=== PATIENT | female | born 1990 | race Caucasian/White ===

== ENCOUNTER 2021-03-30 06:04 | Inpatient (IN) | payer OTHER, SELFPAY ==
[2021-03-30] VITALS (151 sets, daily range): BP systolic 81–201; BP diastolic 43–177; PULSE 25–150; RESP 16–20; TEMP 36.4–37.7; O2SAT 81–100; BMI 35.1
--- NOTE | 2021-03-30 06:04 | LDADM ---
This patient, Elizabeth Leiva, was admitted to Labor/Delivery/Recovery 103 on 03/30/21 at 06:04. Plans for labor, pain management and were discussed with patient. Patient/family oriented to hospital policies and general routines including ID bracelet, bed and alarms, visiting hours, pain management, procedures, bathroom and other care routines, personal items, smoking policy, room service/diet and guest tray routines, infant security routines, and visiting hours. Patient/Family are encouraged to report perceived risks to care and to ask questions if they do not understand what they are told or what they should do. See OBIX for further documentation.
--- OUTSIDE RECORDS SUMMARY | 2021-03-30 06:11 | XMS_ITS | Encounter Summary ---
:1990 Author Reason for Visit None recorded. Assessment and Plan 1. Cholestasis of ? non-stress test Discussion Note: None recorded.Patient educational handouts: No information available. Plan of Care Reminders Provider Appointments Ob Routine Luís Wrae 03/31/2021 MD Rosamaria 10:15AM ? Ob Routine Elizabeth Ware 04/05/2021 MD Rosamaria 1:30PM ? Ob Routine Elizabeth Ware 04/14/2021 MD Rosamaria 10:30AM Lab None ? ? recorded. Referral None ? ? recorded. Procedures None ? ? recorded. Surgeries None ? ? recorded. Imaging Non-stress [place] Test 03/24/2021 Medications Name Start Date ? ? ? ursodiol 300 mg capsule ? TAKE 1 CAPSULE BY MOUTH TWICE DAILY Medications Administered None recorded. Vitals None recorded. Results Lab Results None recorded. Allergies Code Code System Name Reaction Severity Onset NKDA ? ? ? Problems Name
--- OUTSIDE RECORDS SUMMARY | 2021-03-30 06:11 | XMS_ITS | Encounter Summary ---
:1990 Author Reason for Visit None recorded. Assessment and Plan 1. Cholestasis of ? US, obstetric, follow-up ? US, obstetric, biophysical profile Discussion Note: None recorded.Patient educational handouts: No information available. Plan of Care Reminders Provider Appointments Ob Routine Luís linoo Chaz 03/31/2021 MD Rosamaria 10:15AM ? Ob Routine Elizabeth Ware 04/05/2021 MD Rosamaria 1:30PM ? Ob Routine Elizabeth Ware 04/14/2021 MD Rosamaria 10:30AM Lab None recorded. ? ? Referral None recorded. ? ? Procedures None recorded. ? ? Surgeries None recorded. ? ? Imaging US, Obstetric, [facility] Follow-up 02/17/2021 ? US, Obstetric, [facility] Biophysical Profile 02/17/2021 Medications Name Start Date ? ? ? ursodiol 300 mg capsule ? TAKE 1 CAPSULE BY MOUTH TWICE DAILY Medications
--- OUTSIDE RECORDS SUMMARY | 2021-03-30 06:11 | XMS_ITS ---
:1990 Author Care Team Providers Name Role Phone Rosamaria Chaz Primary Care Provider Unavailable Allergies Code Code System Name Reaction Severity Status Onset NKDA ? Medications Name Status Start Date Stop Date ? ? amoxicillin 500 mg capsule Completed ? 03/24 TAKE 2 CAPSULES BY MOUTH ONCE DAILY FOR 10 DAYS Active ? Not available ursodiol 300 mg capsule Active ? Not avai lable TAKE 1 CAPSULE BY MOUTH TWICE DAILY Problems Name Status Onset Date Source ? Active 10/13/2020 ? Procedures Date Name Performed by ? 12/08/2020 US, Obstetric, 2Nd or 3Rd Trimester Carmen stewart [address] [place] [address] (Work [address]) 01/06/2021 US, Obstetric, Follow-up [place] [address] [place] [address] (Work [address]) 02/07/2021 US, Obstetric, Biophysical Profile Cris sinclair [address] [place] [address] (Work [address]) 02/17/2021 US, Obstetric, Follow-up [place] [address] [place] [address]
--- OUTSIDE RECORDS SUMMARY | 2021-03-30 06:11 | XMS_ITS | Encounter Summary ---
:1990 Author Reason for Visit None recorded. Assessment and Plan 1. Cholestasis of ? US, obstetric, biophysical profile Discussion Note: None recorded.Patient educational handouts: No information available. Plan of Care Reminders Provider Appointments Ob Routine Luís Ware 03/31/2021 MD Rosamaria 10:15AM ? Ob Routine Elizabeth Ware 04/05/2021 MD Rosamaria 1:30PM ? Ob Routine Elizabeth Ware 04/14/2021 MD Rosamaria 10:30AM Lab None recorded. ? ? Referral None recorded. ? ? Procedures None recorded. ? ? Surgeries None recorded. ? ? Imaging US, Obstetric, [facility] Biophysical Profile 02/07/2021 Medications Name Start Date ? ? ? ursodiol 300 mg capsule ? TAKE 1 CAPSULE BY MOUTH TWICE DAILY Medications Administered None recorded. Vitals None recorded. Results Lab Results None recorded. Allergies Code Code System Name Reaction Severity Onset
--- OUTSIDE RECORDS SUMMARY | 2021-03-30 06:11 | XMS_ITS | Encounter Summary ---
[...] ? recorded. Imaging Non-stress [place] Test 03/17/2021 Medications Name Start Date ? ? ? ursodiol 300 mg capsule ? TAKE 1 CAPSULE BY MOUTH TWICE DAILY Medications Administered None recorded. Vitals None recorded. Results Lab Results None recorded. Allergies Code Code System Name Reaction Severity Onset NKDA ? ? ? Problems Name
--- OUTSIDE RECORDS SUMMARY | 2021-03-30 06:11 | XMS_ITS | Encounter Summary ---
:1990 Author Reason for Visit OB visit Assessment and Plan Assessment Note Patient is ___weeks . Discu ssed plan. 1. Cholestasis of Discussion Note: None recorded.Patient educational handouts: No information available. Plan of Care Reminders Provider Appointments Ob Routine Luís Ware 03/31/2021 MD Rosamaria 10:15AM ? Ob Routine Elizabeth Ware 04/05/2021 MD Rosamaria 1:30PM ? Ob Routine Elizabeth Ware 04/14/2021 MD Rosamaria 10:30AM Lab None ? ? recorded. Referral None ? ? recorded. Procedures None ? ? recorded. Surgeries None ? ? recorded. Imaging None ? ? recorded. Medications Name Start Date ? ? ? ursodiol 300 mg capsule ? TAKE 1 CAPSULE BY MOUTH TWICE DAILY Medications Administered None recorded. Vitals Height Weight BMI Blood Pressure 5 ft 5 in 195 lbs 32.4 kg/m2 126/55 mm[Hg] Results Lab Results None recorded. Allergies Code Code System Name Reaction Severity Onset
--- OUTSIDE RECORDS SUMMARY | 2021-03-30 06:11 | XMS_ITS | Encounter Summary ---
[...] None recorded. ? ? Imaging US, Obstetric, [facility] Biophysical Profile 02/24/2021 Medications Name Start Date ? ? ? ursodiol 300 mg capsule ? TAKE 1 CAPSULE BY MOUTH TWICE DAILY Medications Administered None recorded. Vitals None recorded. Results Lab Results None recorded. Allergies Code Code System Name Reaction Severity Onset
--- OUTSIDE RECORDS SUMMARY | 2021-03-30 06:11 | XMS_ITS | Encounter Summary ---
:1990 Author Reason for Visit OB visit Assessment and Plan Assessment Note Patient is ___weeks . Discu ssed plan. 1. Routine care Discussion Note: None recorded.Patient educational handouts: No [...] BMI Blood Pressure 5 ft 5 in 199 lbs 33.1 kg/m2 136/79 mm[Hg] Results Lab Results None recorded. Allergies Code Code System Name Reaction Severity Onset
--- OUTSIDE RECORDS SUMMARY | 2021-03-30 06:11 | XMS_ITS | Encounter Summary ---
[...] BMI Blood Pressure 5 ft 5 in 192 lbs 32 kg/m2 125/81 mm[Hg] Results Lab Results None recorded. Allergies Code Code System Name Reaction Severity Onset
--- OUTSIDE RECORDS SUMMARY | 2021-03-30 06:11 | XMS_ITS | Encounter Summary ---
:1990 Author Reason for Visit OB visit Assessment and Plan Assessment Note Patient is ___weeks . Discu ssed plan. 1. Cholestasis of ? bile acids, total, serum Discussion Note: None recorded.Patient educational handouts: No information available. Plan of Care Reminders Provider Appointments Ob Routine Luís Ware 03/31/2021 MD Rosamaria 10:15AM ? Ob Routine Elizabeth Ware 04/05/2021 MD Rosamaria 1:30PM ? Ob Routine Elizabeth Ware 04/14/2021 MD Rosamaria 10:30AM Lab Bile Acids, [facility] [place] Total, Serum 03/10/2021 Hospital (Lab) Referral None ? ? recorded. Procedures None ? ? recorded. Surgeries None ? ? recorded. Imaging None ? ? recorded. Medications Name Start Date ? ? ? ursodiol 300 mg capsule ? TAKE 1 CAPSULE BY MOUTH TWICE DAILY Medications Administered None recorded. Vitals Height Weight BMI Blood Pressure 5 ft 5 in 196 lbs 32.6 kg/m2 128/83 mm[Hg] Results Lab Results
--- OUTSIDE RECORDS SUMMARY | 2021-03-30 06:11 | XMS_ITS | Encounter Summary ---
[...] BMI Blood Pressure 5 ft 5 in 197 lbs 32.8 kg/m2 128/80 mm[Hg] Results Lab Results None recorded. Allergies Code Code System Name Reaction Severity Onset
--- OUTSIDE RECORDS SUMMARY | 2021-03-30 06:12 | XMS_ITS | Encounter Summary ---
:1990 Author Reason for Visit OB visit OB [id number] EDC 04/25/2021 LMP 07/19/2020 Assessment and Plan Assessment Note Patient is __24_weeks . Dis cussed plan. 1. Routine care Discussion Note: None [...] ft 5 in 192 lbs 32 kg/m2 122/73 mm[Hg] Results Lab Results None recorded. Allergies Code C
--- OUTSIDE RECORDS SUMMARY | 2021-03-30 06:12 | XMS_ITS | Encounter Summary ---
[...] BMI Blood Pressure 5 ft 5 in 193 lbs 32.1 kg/m2 136/81 mm[Hg] Results Lab Results None recorded. Allergies Code Code System Name Reaction Severity Onset
--- OUTSIDE RECORDS SUMMARY | 2021-03-30 06:12 | XMS_ITS | Encounter Summary ---
:1990 Author Reason for Visit None recorded. Assessment and Plan 1. condition affecting obs tetrical care of mother ? US, obstetric, follow-up Discussion Note: None recorded.Patient educational handouts: No information available. Plan of Care Reminders Provider Appointments Ob Routine Luís linoo Chaz 03/31/2021 MD Rosamaria 10:15AM ? Ob Routine Elizabeth Ware 04/05/2021 MD Rosamaria 1:30PM ? Ob Routine Elizabeth Ware 04/14/2021 MD Rosamaria 10:30AM Lab None ? ? recorded. Referral None ? ? recorded. Procedures None ? ? recorded. Surgeries None ? ? recorded. Imaging , [place] Obstetric, Follow-up 01/06/2021 Medications Name Start Date ? ? ? ursodiol 300 mg capsule ? TAKE 1 CAPSULE BY MOUTH TWICE DAILY Medications Administered None recorded. Vitals None recorded. Results Lab Results None recorded. Allergies Code Code System Name Reaction Severity Onset NKDA ? ? ? Problems
[2021-03-30 06:48] LABS: Basophils Absolute Auto 0.1 K/mm3 (0.0-0.1); Basophils Percent Auto 0.4 % (0.2-1.2); Eosinophils Absolute Auto 0.6 K/mm3 (0-0.3); Eosinophils Percent Auto 3.8 % (0-4.4); Hematocrit 33.2 % (37.0-47.0); Immature Granulocyte Percent A 1.3 % (0-0.5); Lymphocytes Absolute Auto 2.22 K/mm3 (0.9-3.2); Lymphocytes Percent Auto 14.9 % (18.3-44.2); Mean Corpuscular HGB Conc 33.1 g/dl (32-36); Mean Corpuscular Volume 96.5 fl (80-100); Mean Platelet Volume 9.7 fl (7.4-10.4); Monocytes Absolute Auto 1.2 K/mm3 (0.1-0.6); Monocytes Percent Auto 8.1 % (2.6-8.5); Neutrophils Absolute Auto 10.7 K/mm3 (1.3-6.7); Neutrophils Percent Auto 71.5 % (45.5-73.1); Platelet Count Result 371 k/mm3 (150-375); Red Blood Count 3.44 M/mm3 (4.2-5.4); Red Cell Distribution Width 13.5 % (11.5-14.5); White Blood Count 14.9 K/mm3 (4.5-10.0)
[2021-03-30] MEDS: LACTATED RINGERS 1,000 ML 125 ML IV CONT ×2 (06:55→08:39)
[2021-03-30] MEDS: OXYTOCIN 30 UNITS/NS 500 ML 30 UNITS/500 ML BAG IV CONT (06:55)
--- NOTE | 2021-03-30 07:46 | P.HPUP_ITS ---
History and Physical Update Update Date/Time: 03/30/21 07:46 30 y/o female at 36 weeks - induction of l abor for cholestasis of AROM - clear, pitocin, expectant History and Physical has been reviewed, including an updated exam of the patient. There are NO changes in the patient's condition. Risks, benefits, and alternatives have been discussed and questions answered. Patient agrees to proceed with procedure.
[2021-03-30 09:52] LABS: Rapid Plasma Reagin Non-Reactive (NonReactive)
--- NOTE | 2021-03-30 10:09 | P.PNOB_ITS ---
OB - PN: Subj Subjective Date/time seen: 03/30/21 10:09 AROM - repeated, clear, /-2 reassuring FHT's OB - PN: Obj Data Labs CBC & Chem 7: 03/30/21 06:38 Labs: Laboratory Results - last 24 hr 03/30/21 03/30/21 03/30/21 06:38 06:38 06:38 WBC 14.9 H RBC 3.44 L Hgb 11.0 L Hct 33.2 L MCV 96.5 MCH 32.0 MCHC 33.1 RDW 13.5 Plt Count 371 MPV 9.7 Immature Gran % (Auto) 1.3 H Neut % (Auto) 71.5 Lymph % (Auto) 14.9 L [place] % (Auto) 8.1 Eos % (Auto) 3.8 Baso % (Auto) 0.4 Lymph # (Auto) 2.22 [place] # (Auto) 1.2 H Eos # (Auto) 0.6 H Baso # (Auto) 0.1 Abs Immat Gran (auto) 0.20 H Absolute Neuts (auto) 10.7 H Absolute Nucleated RBC 0.0 Nucleated RBC % 0.0 RPR Non-reactive Blood Type A Positive Antibody Screen Negative OB - PN A/P Time Spent With Patient Time: Total time spent is greater than 50% in coordination of care (as documented) at patient's floor/unit and/or counseling patient:
[2021-03-30] MEDS: ONDANSETRON INJ 4 MG/2 ML VIAL IV PUSH (14:12)
--- NOTE | 2021-03-30 15:57 | P.PCNOB_ITS ---
OB - Delivery Note Procedure Delivery date: 03/30/21 Procedure: Intrapartal events: None Induction method: AROM and per pitocin protocol Delivery monitor: external FHT and internal uterine Route of delivery: Laceration Description: None Specimen: Yes Quantitative Blood Loss (ml): 300 Anesthesia type: Epidural Disposition: floor [place] Baby Date of : 03/30/21 Time of : 15:49 Weeks of gestation at delivery: 36 Infant gender: Female Weight (pounds): 6 Weight (ounces): 2 Placenta delivery description: Spontaneous score one minute: 9 score five minutes: 9
[2021-03-30] MEDS: OXYTOCIN 30 UNITS/NS 500 ML 30 UNITS/500 ML BAG 125 UNITS IV CONT (16:28)
[2021-03-30] MEDS: LORATADINE 10 MG TABLET PO (16:53)
[2021-03-30] MEDS: IBUPROFEN 600 MG TABLET PO (18:02)
[2021-03-30] MEDS: BENZOCAINE 20% AER SPR (*SP) 56 GM CAN 1 SPRAY TOPICAL (18:24)
[2021-03-30] MEDS: WITCH HAZEL 40 PADS 1 PAD TOPICAL (18:24)
--- NOTE | 2021-03-30 18:40 | OBPPTRN ---
Patient transferred to post room #290 via wheelchair. Support person present. Oriented to unit, room, information board, rooming in, admission packet and security measures. Patient verbalizes understanding.
[2021-03-31 04:37] LABS: Hemoglobin 9.9 g/dL (12.0-15.0)
--- NOTE | 2021-03-31 07:28 | PM.OBPNVD ---
OB - PN: Subj Subjective Date/time seen: 03/31/21 07:28 Patient comments: no complaints baby status: doing well OB - PN: Obj Data Labs CBC & Chem 7: 03/31/21 04:14 Labs: Laboratory Results - last 24 hr 03/30/21 03/30/21 03/31/21 06:38 06:38 04:14 Hgb 9.9 L Hct 30.0 L RPR Non-reactive Blood Type A Positive Antibody Screen Negative OB - PN A/P Plan day: 1 Plan: routine care Time Spent With Patient Time: Total time spent is greater than 50% in coordination of care (as documented) at patient's floor/unit and/or counseling patient: Review of Systems Review of Systems: All systems reviewed & are unremarkable except as noted in HPI and below Exam Const: General: cooperative, healthy appearing, comfortable and no acute distress
[2021-03-31 08:20] VITALS: BP 114/61; PULSE 93; RESP 18; TEMP 36.8; O2SAT 99
[2021-03-31] MEDS: DOCUSATE SODIUM 100 MG CAPSULE PO ×2 (08:42→15:57)
[2021-03-31] MEDS: POLYSACCHARIDE IRON COMPLEX 150 MG CAPSULE PO ×2 (08:42→15:57)
[2021-03-31] MEDS: IBUPROFEN 600 MG TABLET PO ×2 (08:42→15:57)
--- NOTE | 2021-03-31 09:16 | WPDANLDPN2 ---
Anes-Prog Note L&D Date/Time: 03/31/21 09:16 Comfortable throughout: labor and delivery Neuraxial method: epidural Epidural/Spinal procedure site: clean & non-tender Neuro status: Neuro function grossly intact. Cardiovascular status: normal Respiratory status: normal Airway patency: baseline Mental status: baseline Post-Op hydration status: normal Vital Signs: Last Vital Signs Temp 36.8 C 03/31/21 08:20 Pulse 93 03/31/21 08:20 Resp 18 03/31/21 08:20 BP 114/61 03/31/21 08:20 Pulse Ox 99 03/31/21 08:20 Pain score (VAS): 0 I/O: Intake & Output 03/30/21 03/31/21 03/31/21 23:59 07:59 15:59 Intake Total 500 Output Total 110 Balance 390 Post-procedural complaints: none Patient feedback: Patient satisfied with anesthetic care.
[2021-03-31 12:02] VITALS: BP 126/83; PULSE 82; RESP 16; TEMP 36.5; O2SAT 99
[2021-03-31] MEDS: TETANUS,DIPHTHERIA,AC PERTUSSIS ADULT (0.5 ML) BOOSTRIX IM (19:22)
[2021-03-31 20:00] VITALS: BP 110/75; PULSE 84; RESP 16; TEMP 36.3
--- NOTE | 2021-03-31 20:00 | PC.NURSE ---
Patient viewed the discharge video Mother & Baby Care, The First Two Weeks online. Patient was given the opportunity and encouraged to ask questions. Patient verbalized understanding of information shared and has been given the mother/baby guide for home reference.
[2021-04-01 07:41] VITALS: BP 122/73; PULSE 68; RESP 16; TEMP 36.6
[2021-04-01] MEDS: DOCUSATE SODIUM 100 MG CAPSULE PO (07:43)
[2021-04-01] MEDS: MULTIVIT/MIN/PREN/FOL AC/IRON TABLET 1 TAB PO (07:43)
[2021-04-01] MEDS: POLYSACCHARIDE IRON COMPLEX 150 MG CAPSULE PO (07:44)
--- NOTE | 2021-04-01 12:51 | P.DS_ITS ---
DS: Admitting Diagnosis Discharge Date 04/01/22 Admitting Diagnosis cholestasis of , 36 week gestation DS: Discharge Diagnosis Discharge Diagnosis (1) Cholestasis during : Code(s): O26.619 - Liver and biliary tract disorders in , unspecified trimester; K83.1 - Obstruction of bile duct Status: Acute (2) Term delivered: Code(s): O80 - Encounter for full-term uncomplicated delivery Status: Acute OB - DS: Summary OB Procedures : None, NST and Ultrasound OB Procedures Intrapartum: Spontaneous Vag Delivery OB Procedures: : None Peripartum Data Delivery Method: Natural Vaginal Time Spent with Patient Time attestation: Total time spent providing and/or coordinating discharge services: DS: Data Data Completed and Pending Pending studies at discharge: Pending at discharge 03/30/21 15:52 Surgical [PTH] Routine Discharge Plan Discharge Attending physician on discharge: Viet Blank Discharging Clinician: Viet Blank Patient Disposition: Home, Self-Care Activity: pelvic rest Diet: regular Patient Instructions: Antibiotic Form, How to Stop Smoking (DC), Cigarette Smoking and Your Health (GEN), Secondhand Smoke Exposure in Children (GEN), Vaginal Delivery (DC) Stand Alone Forms: General Discharge Information Follow-up/Referrals: Viet Blank MD [Physician] - Discharge Medications: Continued PNV [id number] [] 28 mg iron- 800 mcg Tablet 1 tablet PO DAILY RF: 0 Discontinued ursodiol 300 mg Capsule 300 mg PO BID RF: 0 Date of admission: 03/30/21 06:04 Primary Care Provider: PHYSICIAN,[employer] Admitting Provider: Viet Blank Attending physician on admission: Viet Blank Condition: Stable
--- NOTE | 2021-04-01 12:51 | PM.OBPNVD ---
OB - PN: Subj Subjective Date/time seen: 04/01/21 12:51 Patient comments: no complaints, pain well controlled and tolerating diet OB - PN: Obj Data Labs CBC & Chem 7: 03/31/21 04:14 OB - PN A/P Plan day: 2 Plan: routine care and discharge home Time Spent With Patient Time: Total time spent is greater than 50% in coordination of care (as documented) at patient's floor/unit and/or counseling patient: Exam Const: General: comfortable and no acute distress Resp: Effort & Inspection: normal respiratory effort Auscultation: no rales, no rhonchi and no wheezes Cardio: Rate: regular rate Heart sounds: no click, no murmurs and no rubs GI: GI Palp: Yes Soft to palpation and No Tenderness to palpation present (GI) Auscultation: normal bowel sounds Extrem: General: normal to inspection, no pedal edema and no calf tenderness
[2021-04-03 11:22] VITALS: BP 131/75; PULSE 82; RESP 20; TEMP 36.8; O2SAT 100
== END 2021-04-01 13:52 | disposition home or self-care (01) | DRG 560 ==
LOC: ANHLDR 16:13 → ANHOB2 18:47
PROVIDERS: Admitting Provider Obstetrics & Gynecology; Visit Provider Obstetrics & Gynecology
DX: O26.62 Liver and biliary tract disorders in childbirth (principal); K83.1 Obstruction of bile duct; Z3A.36 36 weeks gestation of pregnancy; Z37.0 Single live birth
CPT/HCPCS: 36415; 85014; 85018; 85025; 86592; 86850; 86900; 86901; 88307; 90715; A9270; J2405; J2590; J7120